=== PATIENT | male | born 2000 | race Caucasian/White ===

== ENCOUNTER 2021-02-17 18:26 | Emergency (ER) | payer OTHER ==
[~2021-02-17] VITALS: Ht 177.8 cm; Wt 61.4 kg
[2021-02-17] MEDS ORDERED: LEXA1TAB PO (18:41)
[2021-02-17] MEDS ORDERED: HYDR-3363 PO (18:41)
[2021-02-17] MEDS ORDERED: D31000TA2 PO (18:41)
[2021-02-17 19:55] LABS: HEMATOCRIT 49.7 % (42.0-52.0); HEMOGLOBIN 17.8 g/dl (13.5-17.5); MEAN CORPUSCULAR HEMOGLOBIN 31.1 pg (27.0-33.0); MEAN CORPUSCULAR HGB CONC 35.8 g/dl (32.0-36.5); MEAN CORPUSCULAR VOLUME 86.9 fl (80.0-96.0); PLATELET COUNT, AUTOMATED 225 10^3/uL (150-450); RED BLOOD COUNT 5.72 10^6/uL (4.30-6.10); WHITE BLOOD COUNT 8.2 10^3/uL (4.0-10.0)
[2021-02-17 20:28] LABS: AMPHETAMINES LEVEL URINE NEGATIVE (NEGATIVE); BARBITURATES URINE NEGATIVE (NEGATIVE); BENZODIAZEPINES URINE NEGATIVE (NEGATIVE); CANNABINOIDS URINE POSITIVE (NEGATIVE); COCAINE METABOLITE URINE POSITIVE (NEGATIVE); METHADONE URINE NEGATIVE (NEGATIVE); OPIATES URINE NEGATIVE (NEGATIVE); PHENCYCLIDINE URINE NEGATIVE (NEGATIVE)
[2021-02-17 20:38] LABS: ACETAMINOPHEN LEVEL < 2.0 UG/ML (10.0-30.0); ALBUMIN 4.5 GM/DL (3.2-5.2); ALT/SGPT 17 U/L (12-78); BILIRUBIN,DIRECT 0.2 MG/DL (0.0-0.2); BLOOD UREA NITROGEN 20 MG/DL (7-18); CALCIUM LEVEL 9.2 MG/DL (8.5-10.1); CARBON DIOXIDE LEVEL 30 MEQ/L (21-32); CHLORIDE LEVEL 107 MEQ/L (98-107); CREATININE FOR GFR 1.21 MG/DL (0.70-1.30); ETHYL ALCOHOL (ETHANOL) < 0.003 % (0.000-0.010); GLUCOSE, FASTING 68 MG/DL (70-100); POTASSIUM SERUM 4.1 MEQ/L (3.5-5.1); SALICYLATE LEVEL < 1.7 MG/DL (5.0-30.0); SODIUM LEVEL 143 MEQ/L (136-145); TOTAL PROTEIN 7.8 GM/DL (6.4-8.2)
[2021-02-18] MEDS ORDERED: HYDR-3363 PO (00:14)
[2021-02-18] MEDS ORDERED: HOME MED LIST COMPLETE! XX SCH (00:15)
[2021-02-18 06:31] VITALS: BP 125/82
--- NOTE | 2021-02-18 10:14 | ECGEPIP ---
[facility] - ED Test Date: 2021-02-17 Pat Name: AMPARO BRITO Department: Room: - Gender: Male Subacute Nurse: FLOR : 2000 Requested By: YANETH Sun Order Number: [id number] Reading MD: Laura Cortez Measurements Intervals [place] Rate: 63 P: 79 [place]: 154 QRS: 74 QRSD: 94 T: 73 QT: 394 QTc: 403 Interpretive Statements Normal sinus rhythm with sinus arrhythmia Possible Left atrial enlargement Incomplete right bundle branch block No prior Electronically Signed on 02-18-2021 10:14:26 EDT by Laura Cortez
== END 2021-02-18 06:32 ==
LOC: M ED 18:26
DX: F32.9 Major depressive disorder, single episode, unspecified (principal); R45.851 Suicidal ideations; I45.19 Other right bundle-branch block
CPT/HCPCS: 36415; 80048; 80076; 80143; 80307; 82077; 84443; 85027; 93005; 99284; U0002